=== PATIENT | male | born 1990 | race Caucasian/White ===

== ENCOUNTER 2017-07-31 22:05 | Emergency (ER) | payer OTHER ==
[~2017-07-31] VITALS: Ht 170.2 cm; Wt 87.1 kg
[~2017-07-31 22:05] MED LIST: ANAPROX DS550 M1 PO; AUGMENTIN875 MG PO; CLARITIN-D 21 TABLET PO; MOUTH SORE15 ML MM; NO MED; PERCOCET 5/31 TABLET PO; PROTONIX20 MG PO; VALTREX1000 MG PO; VICODIN 5-3001 EACH PO; ZOFRAN ODT4 MG PO
[2017-08-01] MEDS ORDERED: NAPROSYN500 MG PO (00:43)
[2017-08-01 01:19] VITALS: BP 142/89
== END 2017-08-01 01:21 | disposition home or self-care (01) ==
LOC: EME 22:05
DX: S63.501A Unspecified sprain of right wrist, initial encounter (principal); S63.601A Unspecified sprain of right thumb, initial encounter; Y04.2XXA Assault by strike against or bumped into by another person, initial encounter; Y92.149 Unspecified place in prison as the place of occurrence of the external cause; Y99.0 Civilian activity done for income or pay
CPT/HCPCS: 73110; 73130; 99281; 99283

== ENCOUNTER 2017-08-15 08:48 | Emergency (ER) | payer OTHER ==
[~2017-08-15] VITALS: Ht 172.7 cm; Wt 84.0 kg
[~2017-08-15 08:48] MED LIST changes: +NAPROSYN500 MG PO
[2017-08-15 10:33] LABS: APPEARANCE CLEAR ((CLEAR)); BILIRUBIN NEGATIVE; BLOOD NEGATIVE; COLOR YELLOW ((YELLOW)); GLUCOSE (STRIP) NEGATIVE; KETONES NEGATIVE; LEUKOCYTES NEGATIVE; NITRITE NEGATIVE; PROTEIN (STRIP) 30; SPECIFIC GRAVITY 1.034 (1.000-1.030); UROBILINOGEN 0.2 MG/DL (0.2-1.0)
[2017-08-15] MEDS ORDERED: ZOFRAN ODT4 MG PO (10:53)
[2017-08-15] MEDS ORDERED: BENTYL20 MG PO (10:53)
[2017-08-15 11:08] VITALS: BP 119/65
== END 2017-08-15 11:10 | disposition home or self-care (01) ==
LOC: EME 08:48
PROVIDERS: Nurse Practitioner Family
DX: J02.0 Streptococcal pharyngitis (principal); E86.0 Dehydration; R11.2 Nausea with vomiting, unspecified; R19.7 Diarrhea, unspecified
CPT/HCPCS: 81003; 87651 90; 99281; 99284; J0561